=== PATIENT | male | born 1970 | race Caucasian/White ===

== ENCOUNTER 2019-06-03 17:43 | Emergency (ER) | payer MEDICAID ==
[~2019-06-03] VITALS: Ht 177.8 cm; Wt 85.7 kg
[2019-06-03 17:45] VITALS: BP_SYST 166
--- NOTE | 2019-06-03 20:15 | NUR ---
Call pt name in the WR.No answer.
--- NOTE | 2019-06-03 20:20 | NUR ---
Call pt name in the WR.No answer.
--- NOTE | 2019-06-03 20:25 | NUR ---
Call pt name in the WR.No answer.
== END 2019-06-03 20:25 | disposition left against medical advice (07) ==
LOC: SED 17:43
DX: R10.9 Unspecified abdominal pain (principal); Z53.21 Procedure and treatment not carried out due to patient leaving prior to being seen by health care provider